=== PATIENT | female | born 1990 | race Caucasian/White ===

== ENCOUNTER 2019-06-26 11:41 | Inpatient (IN) ==
[2019-06-26] MEDS ORDERED: OXYTOCIN 30 UNITS/500 ML BAG IV PRN (12:51)
[2019-06-26] MEDS ORDERED: LACTATED RINGER'S 1,000 ML IV PRN (12:51)
[2019-06-26] MEDS ORDERED: miSOPROStoL 50 MCG TAB PO ONE ×3 (12:51→21:10)
--- NOTE | 2019-06-26 13:07 | History and Physical Report ---
DATE OF ADMISSION: 06/26/2019 CHIEF COMPLAINT: Intrauterine , 37 weeks 5 days, elevated blood pressure, headaches. HISTORY OF PRESENT ILLNESS: The patient is a 29-year-old 3, para 1, general health is good. She is on no chronic pills or medication. No known drug allergies. Her due date is 07/12/2019. She has recently had a documented elevated blood pressures in the office on 06/22/2019. She had no proteinuria at that time and stated that her blood pressures which she monitors at home were in the normal range. Her first delivery was in 2014, she had a boy, 8 pounds 15 ounces, induction at term for elevated blood pressure. She pushed only 20 minutes. After being seen in the office with documented elevated blood pressure on 06/22/2019, she monitored her pressures over the weekend. She stated that they began to creep up and she woke up this morning with a headache. She was instructed to come to the hospital for evaluation and monitoring. PAST MEDICAL HISTORY: She has a 5-year-old boy in good health. ALLERGIES: No known drug allergies. PAST SURGICAL HISTORY: She had a D and C for an incomplete. PAST MEDICAL HISTORY: No history of rheumatic fever, heart disease, heart murmur, diabetes, or tuberculosis. SOCIAL HISTORY: No smoking, no alcohol intake. Works at home. FAMILY HISTORY: Her mom and dad are both in their mid 60s and are in good health. She has a half-sister in good health. REVIEW OF SYSTEMS: No history of chronic migraines, but recent onset of a headache associated with elevated blood pressure. PHYSICAL EXAMINATION: GENERAL: Well-developed, well-nourished 29-year-old white female, alert, oriented x3 and cooperative, in no acute distress, appears her stated age. EYES: Conjunctivae are pink. Sclerae white, no evidence of jaundice. HEART: Had regular rhythm. S1, S2 are normal. BREASTS: Normal. ABDOMEN: Soft, nontender. Good heart rate tracing. No CVA tenderness. PELVIC: Vertex presentation, floating. Cervix was posterior, closed, but soft. MUSCULOSKELETAL: Revealed no calf tenderness. IMPRESSIONS OF THIS CASE: Status post dilation and curettage, history of elevated blood pressure with prior and symptomatic elevation of blood pressures.
[2019-06-26 13:23] LABS: Hematocrit (blood only) 38.8 % (37-47); Mean Corpuscular Hemoglobin 28.7 pg (25-34); Mean Corpuscular Volume 85.7 fL (80-100); Mean Platelet Volume 10.7 fL (7.4-10.4); Platelet Count 204 K/uL (130-400); RDW Coefficient of Variation 15.5 % (11.5-14.5); RDW Standard Deviation 48.4 fL (36.4-46.3); Red Blood Count 4.53 M/uL (4.2-5.4)
[2019-06-26 13:26] LABS: Mean Corpuscular Hgb Conc 33.5 g/dL (32-36)
[2019-06-26 13:34] LABS: Alanine Aminotransferase 14 U/L (12-78); Albumin Level 2.8 gm/dl (3.4-5.0); Aspartate Aminotransferase 10 U/L (15-37); BUN Creatinine Ratio 13.6 (10-20); Blood Urea Nitrogen 8 mg/dl (7-18); Calcium 9.3 mg/dl (8.5-10.1); Carbon Dioxide 18 mmol/L (21-32); Chloride 109 mmol/L (98-107); Creatinine Clr Calc Pharmacy 198.6 ml/min; Est GFR (African American) 143.2; Est GFR (Non-African American) 123.5; Glucose 81 mg/dl (70-99); Potassium 3.9 mmol/L (3.5-5.1); Sodium 139 mmol/L (136-145)
[2019-06-26 13:36] LABS: Albumin Globulin Ratio 0.6 (0.9-2); Alkaline Phosphatase 121 U/L (45-117); Bilirubin Direct < 0.1 mg/dl (0-0.2); Bilirubin,Total 0.2 mg/dl (0.2-1); Globulin 4.4 gm/dl (2.5-4.0); Total Protein 7.2 gm/dl (6.4-8.2)
[2019-06-27] MEDS ORDERED: CITRIC ACID/SODIUM CITRATE 15 ML UDC PO STA (00:54)
[2019-06-27] MEDS ORDERED: cefOXitin 2,000 MG in DEXTROSE 5% 50 ML IV STA (00:54)
--- NOTE | 2019-06-27 01:03 | Anesthesiology Consultation ---
Date of Service June 27, 2019 Assessment & Plan ASA ASA2E Proposed Anesthesia Anesthesia Type: Labor Epidural Risk / Benefits Reviewed With: PT / POA / Parent / Guardian, Accepts Plan and Informed Consent Obtained History Surgery Operation Date: 06/27/19 00:35 Proposed Procedures p Section in LD - Joshua Caden Sales MD Height/Weight Height: 5 ft 9 in Weight: 120.656 kg Allergies Allergy/AdvReac Type Severity Reaction Status Date / Time No Known Drug Allergies Allergy Unknown Verified 06/26/19 11:58 Medications Home Medications Medication Instructions Recorded Confirmed Last Taken vit-iron fum-folic ac 1 tab PO DAILY 06/26/19 06/26/19 06/26/19 [ Vitamin] Active Medications Generic Name Dose Route Start Last Admin Trade Name Freq PRN Reason Stop Dose Admin Lactated Ringer's 1,000 mls @ 125 mls/hr 06/26/19 12:51 06/26/19 19:30 Lr IV 06/28/19 12:50 0 mls/hr .Q8H PRN Infusion L&D Protocol Protocol NPO Date Last Intake of Fluids: 06/27/19 Time Last Intake of Fluids: 00:00 Date Last Intake of Solids: 06/27/19 Time Last Intake of Solids: 07:00 Past Medical History Medical History Dental cavity planning root canal 10/27 Encounter for routine gynecological examination with Papanicolaou smear of cervix History of abnormal cervical Papanicolaou smear 2008, pt can't recall actual diagnosis. No colposcopy. History of induced hypertension Diagnosis of preeclampsia led to induction. Cannot recall if mild or severe. Exercise / Class Metabolic Activity II 4-5 Yardwork/Stairs/Walk up hill Past Family History Family History Aunt Breast cancer Mother Heart disease Grandmother (Paternal) Breast cancer Denies family history of Ovarian cancer Colorectal cancer Past Surgical History Surgical History History of D&C D&E for miscarriage in 2013 Past Anesthesia History No Hx of Anesthesia Complications and No Family Hx of Anesthesia Complications History of PONV No Hx of PONV and No Hx of Motion Sickness Social History Smoking Status: Former smoker tobacco type: cigarettes Hx Alcohol Use: Yes (social) Hx Substance Use: No Review of Systems denies fever/cough/ colds/ chest pain/ SOB/ RYAN Constitutional: no fever and no chills Respiratory: no cough and no dyspnea denies RYAN Cardiovascular: no chest pain and no dyspnea on exertion Physical Exam Vital Signs Last Vital Signs Temp 36.4 C L 06/26/19 23:24 Pulse 75 06/26/19 23:24 Resp 20 06/26/19 23:24 BP 132/77 06/26/19 23:24 ENMT Mouth: no TMJ abnormality and no dentition abnormality Thyromental Distance: > or= 3.5 Finger Breadths Mallampati Class: II Neck neck extension not limited Respiratory normal respiratory effort; no respiratory distress Auscultation: lungs clear to auscultation bilaterally Cardiovascular Rate/Rhythm: regular rate and regular rhythm Neurologic moves all extremities Psychiatric Orientation: alert and oriented x 3 Testing Laboratory Results 06/26/19 13:00 06/26/19 13:00
[2019-06-27] MEDS ORDERED: OXYTOCIN 10 UNITS/ML VIAL ONE (01:10)
[2019-06-27] MEDS ORDERED: MoRPHine SULFATE PF 1 MG/ML 10 ML AMP/VIAL ONE (01:10)
[2019-06-27] MEDS ORDERED: fentaNYL citrate 100 MCG/2 ML VIAL ONE (01:11)
[2019-06-27] MEDS ORDERED: ePHEDrine sulfate 50 MG/ML AMP IV PRN (01:57)
[2019-06-27] MEDS ORDERED: LACTATED RINGER'S 500 ML IV PRN (01:57)
[2019-06-27] MEDS ORDERED: MoRPHine SULFATE PF 1 MG/ML 10 ML AMP/VIAL INT SPINAL ONE (01:57)
[2019-06-27] MEDS ORDERED: MoRPHine SULFATE 2 MG/ML CARP IV PRN (01:57)
[2019-06-27] MEDS ORDERED: NALOXONE HCL 0.4 MG/1 ML VIAL/CARP IV PRN (01:57)
[2019-06-27] MEDS ORDERED: NALOXONE HCL 1 MG in SODIUM CHLORIDE 0.9% 1000ML 1,000 ML IV PRN (01:57)
[2019-06-27] MEDS ORDERED: NALBUPHINE HCL INJ 10 MG/ML AMP IV PRN (01:57)
[2019-06-27] MEDS ORDERED: DiphenhydrAMINE HCL 50 MG/ML VIAL IV PRN ×2 (01:57→19:58)
[2019-06-27] MEDS ORDERED: NALOXONE HCL 0.08 MG in SYRINGE 1.8 ML IV PRN (01:57)
[2019-06-27] MEDS ORDERED: DC INTRASPINAL MORPHINE SCH (02:00)
[2019-06-27] MEDS ORDERED: NO NARCOTICS OR SEDATIVES SCH (02:00)
[2019-06-27] MEDS ORDERED: SODIUM CHLORIDE 0.9% 1000ML 1,000 ML IV SCH (02:00)
--- NOTE | 2019-06-27 02:00 | History and Physical Report ---
DATE OF ADMISSION: 06/27/2019 CHIEF COMPLAINT: Toxemia , intrauterine 37 weeks 6 days, breech presentation. HISTORY OF PRESENT ILLNESS: The patient is a 29-year-old 3, para 1. She had 1 first trimester AB. She delivered a term infant in 2014, was induced at term due to a high blood pressure. Her present has been followed in our office. Her due date is 07/12/2019. She did well up until recently when she began to develop elevated blood pressures. Her prior pressure in the office, diastolic over 100, and she had her own cuff, she checked her pressures during the week, they began to creep up. Wednesday morning, she called and said she had a headache and that she had diastolics over 100. She was then admitted for evaluation. There is documented diastolics of over 100, took several hours of bed rest for them to come down. We started induction. Her first vaginal examination revealed the cervix to be closed and the head to be high, but definitely ballottable. After 3 doses of Cytotec, I checked her again. At this time, I could not ballot the head. Cervix was still closed. I made several attempts to see if I could confirm a vertex presentation, I could not. I then did a bedside abdominal ultrasound and confirmed that it was a breech presentation with the vertex in the right upper quadrant. Subsequently the patient is scheduled for . PAST MEDICAL HISTORY: She has a boy, 5 years old. PAST SURGICAL HISTORY: Status post D and C. ALLERGY: No drug allergies. MEDICAL HISTORY: No history of rheumatic fever, heart disease, heart murmur, diabetes. She had high blood pressure with her prior . SOCIAL HISTORY: No smoking. No excessive alcohol intake. FAMILY HISTORY: Mom mid 60s in good health. Father mid 60s in good health. She has half sister in good health. REVIEW OF SYSTEMS: HEAD: No symptoms of frequent or severe headaches, ear infections, nosebleed, sore throats, kidney or bladder infections. PHYSICAL EXAMINATION: GENERAL: Well-developed, well-nourished 29-year-old white female, alert, oriented x3 and cooperative in no acute distress, appeared her stated age. EYES: Conjunctivae are pink. Sclerae white, no evidence of jaundice. EARS: Had normal light reflex bilaterally. NOSE: Had normal mucosa. Septum is midline. There were no polyps. THROAT: No erythema or evidence of infection. Teeth are in good state of repair. HEAD: Normocephalic, normal distribution of hair. NECK: Supple. Trachea midline. Thyroid is not enlarged. There is no adenopathy appreciated. Both carotids are of good intensity. CHEST: Clear to auscultation and percussion. No wheezes, rales or rhonchi appreciated. HEART: Regular rhythm. S1 and S2 were normal. ABDOMEN: Revealed a term size fetus. Head was palpable, ballottable, right upper quadrant. MUSCULOSKELETAL: Revealed no calf tenderness. PELVIC: Reveals cervix to be closed, posterior, soft and with no ballottable presenting part. IMPRESSIONS OF THIS CASE: History of toxemia with her first , intrauterine 37 weeks 6 days and a breech presentation.
[2019-06-27] MEDS ORDERED: SUPERCREAM 0.870% 15 GM JAR EXT PRN (02:38)
[2019-06-27] MEDS ORDERED: DIPHTHERIA/TETANUS/PERTUSSIS 0.5 ML SYR/VIAL IM ONE (02:38)
[2019-06-27] MEDS ORDERED: HYDROCORTISONE ACETATE 25 MG SUPP PR PRN (02:38)
[2019-06-27] MEDS ORDERED: SENNA 8.6 MG TAB PO PRN (02:38)
[2019-06-27] MEDS ORDERED: BENZOCAINE 20% AER SPR 82.5 GM CAN EXT PRN (02:38)
[2019-06-27] MEDS ORDERED: MAGNESIUM HYDROXIDE SUSP 30 ML UDC PO PRN (02:38)
--- NOTE | 2019-06-27 02:38 | Post Operative Brief Note ---
Immediate Post Op Note v1 Date of Surgery June 27, 2019 Pre & Post Diagnosis Operation Date: 06/27/19 00:35 Pre-Op Diagnosis: 1.Breech Presentation 2.High Blood pressure Post-Op Diagnosis: 1.Breech Presentation 2.High Blood pressure I identified the patient and participated in the time-out.: Yes Procedure Operation Date: 06/27/19 00:35 Actual Procedures p Section in LD(Bilateral) - Joshua Sales MD Surgeon Joshua Sales MD Merchant Miller Dr Velasco Estimated Blood Loss 600 Findings Consistent with Post-Op Diagnosis Fluids double footling breech Specimens placenta Drains Sanches Catheter (inserted following spinal) Anesthesia Type Spinal Complications none Disposition Accompanied Patient To Recovery: No Disposition: Recovery Room
[2019-06-27] MEDS ORDERED: LACTATED RINGER'S 1,000 ML IV SCH (02:45)
--- NOTE | 2019-06-27 02:56 | Anesthesiology Progress Note ---
Date of Service June 27, 2019 Anesthesia Post Procedure Vital Signs Vital Signs: Temp Pulse Resp BP Pulse Ox 06/27/19 02:51 77 100 06/27/19 02:50 66 117/69 06/27/19 02:49 90 92 06/27/19 02:46 80 100 06/27/19 02:41 83 100 06/27/19 02:40 77 132/68 06/26/19 23:24 36.4 C L 75 20 132/77 06/26/19 22:11 70 139/80 06/26/19 20:34 76 137/83 06/26/19 19:03 36.3 C L 82 20 142/83 H 06/26/19 18:11 90 135/87 06/26/19 17:13 90 138/80 06/26/19 16:31 36.6 C 95 H 18 141/88 H 06/26/19 15:07 82 142/84 H 06/26/19 14:10 70 129/83 06/26/19 12:49 99 H 152/100 H 06/26/19 12:20 107 H 179/107 H 06/26/19 12:00 37.2 C 16 Pain Intensity Head: Pain Intensity: 4 Bilateral Back: Pain Intensity: 1 Transfer of Care Handoff Completed per policy Notes Mental Status: alert / awake / arousable and participated in evaluation Patient Amnestic to Procedure: Yes Nausea / Vomiting: adequately controlled Pain: adequately controlled Airway Patency, RR, SpO2: stable & adequate BP & HR: stable & adequate Hydration State: stable & adequate Neuraxial Anesthesia: was administered and sensory block is resolving Anesthetic Complications: no major complications apparent and Pt Satisfied with anesthetic care
[2019-06-27] MEDS: OXYTOCIN 20 UNITS in LACTATED RINGER'S 1,000 ML IV SCH ×2 (03:18→11:48)
--- NOTE | 2019-06-27 03:19 | Operative Report (OR) ---
DATE OF OPERATION: 06/27/2019 DELIVERY NOTE PROCEDURE: Primary low segment section. INDICATIONS FOR SURGERY: Elevated blood pressure, intrauterine , 37 weeks 6 days, breech. PREOPERATIVE DIAGNOSIS: High blood pressure, breech. POSTOPERATIVE DIAGNOSIS: Double footling breech. SURGEON: Fern Sales MD CNC OPERATOR: Kris Velasco MD ESTIMATED BLOOD LOSS: 600 mL. ANESTHESIA: Spinal. OPERATIVE FINDINGS AND PROCEDURE: The patient was brought to the OR table and correctly identified by armband and conversation. Spinal anesthesia was administered. Sanches catheter was inserted aseptically in the bladder, connected to gravity drainage. Compression stockings were applied. Lower uterine segment was painted with an alcohol based sterilizing solution, draped in the usual sterile fashion. The level of the anesthesia was tested. The position of the baby was palpated abdominally. A Pfannenstiel incision was made and carried down to the anterior fascia by sharp dissection. Hemostasis was secured by electrocauterization. Fascia was incised transversely, from the underlying muscle by blunt and sharp dissection. Recti muscles were in the midline exposing the peritoneum which was carefully raised and entered. Lower uterine segment was exposed. We had to make a relatively high entry due to there was no lower uterine segment developed. We made a horizontal incision, scored it with a knife and then entered with scissors. Clear amniotic fluid was seen at this time. Incision was then widened laterally with 2 fingers. Two feet were delivered through the lower uterine segment, then the hips, then the chest, then each arm was reduced, then the head was delivered. breathed and cried spontaneously and was attended to by the senior sourcing manager, Dr. Horton, who was scrubbed and present at the time of delivery. Cord was clamped and cut. Cord blood was taken. The placenta was removed manually. Uterus, tubes, and ovaries were brought out through the incision. We did basically a 3-layer closure. We did a deep closure of heavy duty chromic, which approximated the myometrial edges after wiping the uterine cavity clean and injecting it with 10 units of Pitocin. We then did a second closure over this with a heavy Vicryl, which approximated the muscular layer and part of the fascial layer and then we did interrupted figures of Vicryl to complete the approximation. We had to do 1 or 2 extra sutures on the patient's left side due to bleeding. After hemostasis was achieved, uterus was placed into the abdominal cavity after cleansing it of all blood clots and debris and washing it with irrigating solution. We then did a careful anatomical approximation of the anterior abdominal wall. Peritoneum was closed with a mattress suture of chromic catgut. Recti muscles were approximated with interrupted [id number] suture of chromic catgut. The fascia was closed with continuous interlocking suture of Vicryl on each side, tied in the midline. SubQ was approximated with running plain and skin edges were approximated with staple clips. I attest to the content of the Intraoperative Record and any orders documented therein. Any exception s are noted below.
[2019-06-27] MEDS: KETOROLAC 30 MG/ML VIAL IV PRN ×3 (04:54→18:35)
[2019-06-27] MEDS: DOCUSATE SODIUM 100 MG CAP PO SCH ×2 (08:47→20:10)
[2019-06-27] MEDS: SIMETHICONE 80 MG CHEW PO SCH ×4 (08:47→20:10)
[2019-06-27] MEDS: PRENATAL VITAMIN 1 TAB PO SCH (08:47)
[2019-06-27] MEDS: FERROUS SULFATE 325 MG TAB PO SCH (08:47)
[2019-06-27] MEDS ORDERED: ZOLPIDEM TARTRATE 5 MG TAB PO PRN (19:58)
[2019-06-27] MEDS ORDERED: PROMETHAZINE HCL 25 MG in SODIUM CHLORIDE 0.9% 50 ML IV PRN (19:58)
[2019-06-27] MEDS ORDERED: ONDANSETRON INJ 2 MG/ML 2 ML VIAL IV PRN (19:58)
[2019-06-27] MEDS ORDERED: MEPERIDINE HCL 50 MG/ML CARP IV PRN (19:58)
[2019-06-27] MEDS ORDERED: KETOROLAC 30 MG/ML VIAL IV PRN (19:58)
[2019-06-28] MEDS: IBUPROFEN 600 MG TAB PO PRN ×3 (00:53→10:57)
[2019-06-28] MEDS: OXYCODONE/ACETAMINOPHEN 5mg/325mg TAB PO PRN ×3 (00:54→10:58)
[2019-06-28 06:52] LABS: Basophils # (auto) 0.02 K/uL (0-0.2); Basophils % (auto) 0.2 %; Eosinophils # (auto) 0.05 K/uL (0-0.5); Eosinophils % (auto) 0.5 %; Hematocrit (blood only) 33.4 % (37-47); Hemoglobin 10.7 g/dL (12.0-16.0); Immature Granulocytes # (auto) 0.04 K/uL (0.00-0.02); Immature Granulocytes % (auto) 0.4 %; Lymphocytes # (auto) 1.98 K/uL (1.2-3.4); Lymphocytes % (auto) 19.4 %; Mean Corpuscular Hemoglobin 28.1 pg (25-34); Mean Corpuscular Volume 87.7 fL (80-100); Mean Platelet Volume 10.6 fL (7.4-10.4); Monocytes # (auto) 0.75 K/uL (0.11-0.59); Monocytes % (auto) 7.3 %; Neutrophils # (auto) 7.38 K/uL (1.4-6.5); Neutrophils % (auto) 72.2 %; Platelet Count 170 K/uL (130-400); RDW Coefficient of Variation 15.8 % (11.5-14.5); RDW Standard Deviation 50.5 fL (36.4-46.3); Red Blood Count 3.81 M/uL (4.2-5.4); White Blood Count 10.22 K/uL (4.8-10.8)
[2019-06-28] MEDS: PRENATAL VITAMIN 1 TAB PO SCH (07:49)
[2019-06-28] MEDS: FERROUS SULFATE 325 MG TAB PO SCH (07:49)
[2019-06-28] MEDS: DOCUSATE SODIUM 100 MG CAP PO SCH (07:49)
[2019-06-28] MEDS: SIMETHICONE 80 MG CHEW PO SCH ×2 (07:49→12:03)
--- NOTE | 2019-06-28 08:01 | Obstetrical Progress Note ---
Date of Service June 28, 2019 Assessment & Plan Admission and Anticipated Discharge Date Admission Date: June 26, 2019 Physical Exam Physical Exam: abdomen soft and non tender passing flatus no calf tenderness ambulating well vaginal bleeding scant hgb 10.7 Results & Data ([facility]) Vital Signs (Past 12 Hours) Vital Signs Temp Pulse Resp BP Pulse Ox 06/28/19 00:25 36.8 C 96 H 18 128/86 06/27/19 20:20 36.8 C 90 18 127/86 96
[2019-06-28 08:50] VITALS: BP 125/84; PULSE 82; TEMP 97.5; O2SAT 97
--- NOTE | 2019-06-28 10:50 | Discharge Summary (DS) ---
Mrs. Hutchins was evaluated on maternity for elevated blood pressures. She has been keeping her blood pressures at home that have been gradually increasing. At the time of admission, she was having diastolics over 100 and headaches. Her prior visit in the office, we had documented diastolics of over 100. When she arrived in the hospital, pressures were elevated, diastolics on admission were over a 100. She was over 37 weeks, so elected to induce her. Initially, the fetus was a vertex. We subsequently gave her 3 doses of oral Cytotec. After the third dose, I checked the patient, I could not feel the vertex presentation at this time, so I did a bedside ultrasound, the baby had flipped to a breech position and we proceeded to do a primary low segment section. This was performed under spinal anesthesia, a double footling breech was removed without difficulty. Prophylactic antibiotics were given. Preoperative hemoglobin was 13, postoperatively it was 10.7. Postoperatively, she did well. She remained afebrile and she was ambulating well and eating well and requested discharge on 06/28/2019. She was given the usual prescriptions for Percocet and Motrin. Told her to return to the office for removal of debby and to call if she had any trouble.
[2019-06-28] MEDS ORDERED: bisacodyL 5 MG TABEC PO SCH (20:00)
[2019-06-29] MEDS ORDERED: bisacodyL 10 MG SUPP PR PRN (02:38)
== END 2019-06-28 12:59 | disposition home or self-care (01) | DRG 788 ==
LOC: OPB 11:41 → 4S1 11:43 → 4S2 06-27 05:17